=== PATIENT | male | born 1990 | race Hispanic/Latino ===

== ENCOUNTER 2017-11-18 18:52 | Emergency (ER) | payer SELFPAY ==
[2017-11-18] MEDS ORDERED: Adacel (T-DAP) 0.5 ML VIAL ONE (21:27)
[2017-11-18] MEDS ORDERED: traMADol HCl 50 MG TAB ONE (21:41)
== END 2017-11-18 22:21 | disposition home or self-care (01) ==
LOC: ERS 18:52
DX: S91.312A Laceration without foreign body, left foot, initial encounter (principal); F17.210 Nicotine dependence, cigarettes, uncomplicated; Z71.6 Tobacco abuse counseling; Z23 Encounter for immunization; W25.XXXA Contact with sharp glass, initial encounter
CPT/HCPCS: 90471; 90715; 99406